=== PATIENT | female | born 1975 | race Caucasian/White ===

== ENCOUNTER 2024-10-16 04:08 | Emergency (ER) | payer OTHER, MEDICARE, SELFPAY ==
[2024-10-16] VITALS (7 sets, daily range): BP systolic 115–138; BP diastolic 56–62; PULSE 77–116; RESP 13–18; TEMP 36.7–37.1; O2SAT 96–98; BMI 27.5
--- NOTE | 2024-10-16 04:19 | ED.VIS.GI ---
HPI HPI - GI History of Present Illness Chief Complaint: Abd Pain Narrative Narrative: 49-year-old female past medical history of anxiety, she has had prior cholecystectomy remotely is visiting from [place]. She states over the last 3 weeks she has had lower abdominal pain which has become more constant over the last 3 days. She was laying in her hotel room and the pain became very intense. She denies any fevers or chills, no nausea or vomiting, no problems with bowel movements, no diarrhea. Last normal bowel movement was yesterday. No blood in her bowel movements. She denies any dysuria or hematuria. Sometimes the pain is dull and achy and other times sharp and stabbing. She was able to drive herself to the emergency department. She does state that she thought maybe a few days ago that she was having appendicitis. [facility] Medical History (Updated 10/16/24 @ 07:[address] Abhay Hernandez DO) Tachyarrhythmia Anxiety Home Medications ?Medication ?Instructions ?Recorded ?Last Taken ?Type amitriptyline 50 mg tablet 50 mg PO DAILY 10/16/24 Unknown History cyclobenzaprine 10 mg tablet 10 mg PO QHS 10/16/24 Unknown History gabapentin 300 mg capsule 300 mg PO DAILY 10/16/24 Unknown History gabapentin 300 mg capsule 600 mg PO QHS 10/16/24 Unknown History hydrocodone-acetaminophen 5-325mg 1 - 2 tab PO BID 10/16/24 Unknown History 5mg-325mg hydrocodone-acetaminophen 5-325mg 1 tab PO Q6H PRN PRN Pain 3 days 10/16/24 Unknown Rx 5mg-325mg #10 TABLETS levofloxacin 750 mg tablet 750 mg PO DAILY #10 tabs 10/16/24 Unknown Rx Allergy/AdvReac Type Severity Reaction Status Date / Time adhesive AdvReac Mild Rash Verified 10/16/24 04:10 azithromycin AdvReac Mild eye Verified 10/16/24 04:10 swelling Sulfa (Sulfonamide AdvReac Mild Rash Verified 10/16/24 04:10 Antibiotics) Family History (Updated 10/16/24 @ 07:[address] Abhay Hernandez DO) Other CAD (coronary artery disease) Surgical History (Updated 10/16/24 @ 07:[address] Abhay Hernandez DO) S/P ablation operation for arrhythmia H/O Spinal surgery Hx of cholecystectomy Social History Smoking Status: Current some day smoker tobacco type: cigarettes ROS ROS ED ROS Narrative Constitutional: No fever, no chills. HEENT: No sore throat. No neck pain. Cardiovascular: No chest pain. No palpitations. No pedal edema. Respiratory: No cough, no shortness of breath. Abdominal: Positive for lower abdominal pain. No nausea. No vomiting. No diarrhea. Genitourinary: No dysuria. No hematuria. Musculoskeletal: No myalgias. No arthralgias. Neurologic: No headaches. No dizziness. No lightheadedness. Skin: No rash. No change in color. Psychiatric: No depression. No anxiety. EXAM Physical Exam Narrative Exam Narrative: Afebrile. Vital signs noted. Nontoxic-appearing. Cardiovascular examination reveals mild tachycardia. Lungs are clear to auscultation bilaterally. Abdomen is soft with diffuse tenderness to palpation, especially in the lower quadrants of the abdomen. Occasional voluntary guarding. No rebound. Positive bowel sounds. Positive CVA tenderness to percussion right greater than left. Neurological examination is nonfocal and nonlateralizing. Const Vital Signs: 10/16/24 04:14 10/16/24 05:41 10/16/24 05:44 Temperature 98.0 F 98.2 F Temperature Source Temporal Oral Pulse Rate 116 H 99 Respiratory Rate 18 13 Blood Pressure 138/62 H 115/57 L Blood Pressure Mean 87 76 Pulse Ox 98 98 97 Oxygen Delivery Method Room Air Room Air Room Air 10/16/24 06:20 10/16/24 06:46 10/16/24 07:15 Temperature 98.7 F 98.4 F Temperature Source Temporal Oral Pulse Rate 106 H 96 101 H Respiratory Rate 16 16 17 Blood Pressure 122/56 H 123/62 H 124/58 H Blood Pressure Mean 78 82 80 Pulse Ox 98 98 96 Oxygen Delivery Method Room Air Room Air Room Air 10/16/24 07:45 Temperature 98.2 F Temperature Source Pulse Rate 77 Respiratory Rate 18 Blood Pressure 124/58 H Blood Pressure Mean 80 Pulse Ox 98 Oxygen Delivery Method MDM MDM MDM Narrative Medical decision making narrative: Differential diagnosis includes but not limited to acute appendicitis versus diverticulitis versus cystitis versus pyelonephritis versus ureterolithiasis. Comprehensive workup was pursued. Patient did drive herself here so narcotic analgesia was deferred. However, she was given Toradol 30 mg intravenously. I reviewed her laboratory work and she does have a leukocytosis with a white count of 18.2 with hemoglobin normal at 13.2, hematocrit 38.6, platelet count normal at 437. Sodium slightly low 133 which I think is nonspecific, potassium normal at 4.0, BUN low at 6 with creatinine 0.80. Glucose elevated at 147 but she has normal anion gap of 6. LFTs show an alk phos elevated at 119 which I think is nonspecific. Lipase is low at 12 so I doubt pancreatitis. Urinalysis obtained and she has positive for nitrites and microanalysis reveals greater than 100 WBCs with 10-25 RBCs and 3+ bacteria. She was given oral Levaquin initially. I reviewed the radiology report of the CT of the abdomen and pelvis and she has a thickened bladder wall consistent with cystitis, however she does have inflammation of the bilateral ureters and kidneys as there is enhancement noted. I do think that she probably has more of a pyelonephritis. Given her elevated white count and tachycardia initially of 116, currently 99 bpm I obtained a lactic acid. Her urine was sent for culture as well. Lactic acid is normal. Given the patient's elevated white count and back pain as well as suprapubic pain, I discussed patient with the hospitalist, Dr. Hernandez. Initially, the patient was agreeable to observation for IV antibiotics. However, in discussion with the hospitalist she would not like to be discharged. Levaquin will be continued for 10 days and she will be given a short course of narcotic pain medication. She should follow-up with her primary care provider out of state as she states she was returning to [place] tomorrow. Return instructions to the emergency department were reviewed. Disposition is discharged home in stable condition. History & Record Review Discussion w/independent historian: Patient Lab Data Attestation: I reviewed the patient's lab results. Labs: Laboratory Results - last 24 hr 10/16/24 10/16/24 10/16/24 04:15 04:25 05:50 WBC 18.2 H RBC 4.32 Hgb 13.2 Hct 38.6 MCV 89.4 MCH 30.6 MCHC 34.2 RDW Std Deviation 45.1 H RDW Coeff of [place] 13.6 Plt Count 437 MPV 8.7 Immature Gran % (Auto) 0.400 Neut % (Auto) 80.9 H Lymph % (Auto) 11.4 L [place] % (Auto) 6.8 Eos % (Auto) 0.2 Baso % (Auto) 0.3 Absolute Neuts (auto) 14.7 H Absolute Lymphs (auto) 2.08 Nucleated RBC % 0 Sodium 133 L Potassium 4.0 Chloride 101 Carbon Dioxide 26.0 Anion Gap 6 BUN 6 L Creatinine 0.80 Estim Creat Clear Calc 72.34 Est GFR (MDRD) Af Amer 96 Est GFR (MDRD) Non-Af 80 BUN/Creatinine Ratio 7.5 L Glucose 147 H Lactic Acid 0.8 Calcium 9.2 Total Bilirubin 0.50 AST 26 ALT 40 Alkaline Phosphatase 119 H Total Protein 8.0 Albumin 3.6 Globulin 4.4 H Albumin/Globulin Ratio 0.8 L Lipase 12 L Urine Color Yellow Urine Clarity Turbid Urine pH 6.0 Ur Specific [place] 1.015 Urine Protein 500 H Urine Glucose (UA) Normal Urine Ketones Negative Urine Occult Blood 250 H Urine Nitrite Positive H Urine Bilirubin Negative Urine Urobilinogen Normal Ur Leukocyte Esterase 500 H Urine RBC 10-25 SEEN Urine WBC >100 SEEN Ur Squamous Epith Cells 0 SEEN Urine Bacteria 3+ Urine Mucus 0 SEEN Radiography Diagnostic Testing: Clinical Impression(s) from Imaging Studies Abdomen/Pelvis CT 10/16/24 04:48 IMPRESSION: 1. Enhancement of the bilateral renal pelvises and ureters. Correlate with infection/inflammation. No obstructive calculi. 2. Nonobstructive calculus in the left kidney. 3. Mild bladder wall thickening. Correlate with cystitis 4. Hepatic steatosis and hepatomegaly 5. Significant amount of stool in the colon. Correlate with constipation. 6. Sigmoid diverticulosis with no evidence of diverticulitis. One or more dose reduction techniques were used (e.g., Automated exposure control, adjustment of the mA and/or kV according to patient size, use of iterative reconstruction technique). Reading Location: [facility] Discharge Plan Triage Chief Complaint: Abd Pain ED Provider: Isaías Jain Dx/Rx/DC Orders Clinical Impression: Pyelonephritis, Abdominal pain, Hyponatremia Instructions: ED Hyponatremia, ED Pyelonephritis, Female (Adult), ED Cystitis Female Adult Prescriptions: New levofloxacin 750 mg tablet 750 mg PO DAILY Qty: 10 0RF hydrocodone-acetaminophen 5-325 mg tablet 1 tab PO Q6H PRN PRN (Reason: Pain) 3 Days Qty: 10 0RF No Action gabapentin 300 mg capsule 300 mg PO DAILY gabapentin 300 mg capsule 600 mg PO QHS amitriptyline 50 mg tablet 50 mg PO DAILY cyclobenzaprine 10 mg tablet 10 mg PO QHS hydrocodone-acetaminophen 5-325 mg tablet 1 - 2 tab PO BID Primary Care Provider: LISA GASTELUM Referrals: [facility] Doctor,Out of [Non-Staff] - Activity Restrictions/Additional Instructions: Take the antibiotic as directed for the next 10 days. Follow-up with your primary care provider in [place]. Return to the emergency department/seek medical attention if you have sustained high fever, increased pain, inability to take antibiotic, new or worsening symptoms. Do not take narcotic pain medication when driving or operating heavy machinery. Print Language: Chinese Disposition Disposition: Home, Self Care Discharge Date/Time: 10/16/24 07:51
[2024-10-16] MEDS: 0.9% Normal Saline (1000mL) 1,000 ML 999 ML IV (04:22)
[2024-10-16 04:26] LABS: Absolute Lymphocyte Count 2.08 X10^3/uL (0.83-4.51); Absolute Neutrophil Count 14.7 X10^3/uL (2.0-7.7); Basophil# 0.05 X10^3/uL; Basophil% 0.3 % (0-1); Eosinophil# 0.04 X10^3/uL; Eosinophils% 0.2 % (0-5); Hematocrit 38.6 % (37-47); Hemoglobin 13.2 g/dL (12.0-15.0); Lymphocyte # 2.08 X10^3/ul (0.83-4.51); Lymphocyte % 11.4 % (19-41); Mean Corp Hgb Conc 34.2 g/dL (32-36); Mean Corpuscular Hgb 30.6 pg (27.0-32.0); Mean Corpuscular Volume 89.4 fL (81-99); Mean Platelet Vol. 8.7 fl (6.2-12.0); Monocyte# 1.23 X10^3/uL; Monocyte% 6.8 % (0-10); NRBC Flagged by Analyzer 0 % (0-5); Neutrophil # 14.69 X10^3/uL (2.7-7.7); Neutrophil % 80.9 % (47-70); Platelet Count 437 K/mm3 (150-450); RBC Distribution Width CV 13.6 % (11.6-14.6); RBC Distribution Width SD 45.1 fl (35.1-43.9); Red Blood Count 4.32 M/mm3 (4.2-5.4); White Blood Count 18.2 K/mm3 (4.4-11.0)
[2024-10-16 04:35] LABS: Mucous, Urine 0 SEEN /hpf (<or=2+); Squamous Epithelial Cells - UA 0 SEEN /hpf (5-10)
[2024-10-16 04:36] LABS: Color, Urine Yellow (Yellow); Glucose, Dipstick Normal (Normal); Ketone-Dipstick Negative (Negative); Leukocyte Esterase-Dipstick 500 /ul (Negative); Nitrite-Dipstick Positive (Negative); Occult Blood-Urine 250 /ul (Negative); Protein-Dipstick 500 mg/dl (Negative); Specific Gravity, Urine 1.015 (1.002-1.030); Urine Bilirubin Dipstick Negative (Negative); Urine Clarity Turbid (Clear); Urine Urobilinogen Normal (Normal)
[2024-10-16 04:42] LABS: ALB/GLOB Ratio 0.8 RATIO (0.9-2.4); AST(SGOT) 26 U/L (15-37); Alanine Aminotransfer ALT/SGPT 40 U/L (13-56); Albumin, Serum 3.6 g/dL (3.2-5.0); Alkaline Phosphatase 119 U/L (45-117); Anion Gap 6 (5-15); BUN 6 mg/dL (7-18); BUN/Creat Ratio 7.5 RATIO (10-20); Calcium,Total 9.2 mg/dL (8.5-10.1); Chloride 101 mmol/L (98-107); EST Glomerular Filtration Rate 80 mL/min (>60); Est Glom Filt Rate - Afr Amer 96 mL/min (>60); Estimated Creatinine Clearance 72.34 ml/min; Globulin 4.4 g/dL (2.2-4.2); Glucose 147 mg/dL (74-106); Lipase 12 U/L (73-393); Sodium Level 133 mmol/L (136-145)
--- NOTE | 2024-10-16 04:48 | CT_ITS ---
PROCEDURE: ABDOMEN/PELVIS W IV CONT ONLY REASON FOR EXAM: Pain TECHNIQUE: Abdomen and pelvis CT with intravenous contrast. COMPARISON: None. FINDINGS: Lung bases: Clear Liver: Fatty infiltration. Enlarged. Gallbladder: Surgically absent. Spleen: Unremarkable. Pancreas: Unremarkable. Adrenals: Left adrenal gland is mildly thickened Kidneys: Nonobstructive calculus in the left kidney. There is enhancement of the bilateral ureters with no obstructive calculi. Bladder: Mild bladder wall thickening Reproductive Organs: Uterus is present and unremarkable Bowel: Significant stool noted throughout the colon. Multiple diverticula in the sigmoid colon Appendix: Unremarkable Lymph nodes: No suspicious lymph node enlargement. Vasculature: Major vascular structures are unremarkable. Peritoneum / Retroperitoneum: No ascites. No free air. Bones: Unremarkable. CT/Abdomen/Pelvis W IV Cont ONLY IMPRESSION: 1. Enhancement of the bilateral renal pelvises and ureters. Correlate with in fection/inflammation. No obstructive calculi. 2. Nonobstructive calculus in the left kidney. 3. Mild bladder wall thickening. Correlate with cystitis 4. Hepatic steatosis and hepatomegaly 5. Significant amount of stool in the colon. Correlate with constipation. 6. Sigmoid diverticulosis with no evidence of diverticulitis. One or more dose reduction techniques were used (e.g., Automated exposure contr ol, adjustment of the mA and/or kV according to patient size, use of iterative reconstruction technique). Reading Location: [facility]
[2024-10-16 05:06] LABS: Red Blood Cells-Urine 10-25 SEEN /hpf (0-5); White Blood Cells >100 SEEN /hpf (0-5)
[2024-10-16 05:07] LABS: Bacteria 3+ /hpf (None Seen)
[2024-10-16] MEDS: Ketorolac 30 MG/ML Syringe IV (05:14)
[2024-10-16] MEDS: levoFLOXacin 750 MG Tablet PO (05:15)
[2024-10-16 06:41] LABS: Lactic Acid 0.8 mmol/L (0.4-1.9)
--- NOTE | 2024-10-16 07:49 | PCM.CONS.GEN ---
Assessment & Plan Assessment/Plan (1) Pyelonephritis: PLAN: Over the patient the opportunity to stay in the hospital but given her circumstances she would much prefer to be discharged so that she can help her which people get around. Plan is also to return back to [place] on the . I feel that is very reasonable as she is currently very hemodynamically stable. Patient will need to be on antibiotics for least 10 days. Patient may take acetaminophen and ibuprofen as needed for pain when she is not driving and perhaps a narcotic at other times help her with her pain. Advised patient that the pain will improve with time but may take several days to get to more tolerable level. PLAN: Plan So went back and spoke with Dr. Jain and made him aware of the patient's request to be discharged home. He will facilitate the medications and discharge. HPI Consult Data Date of Consult: 10/16/24 HPI Narrative Reason for Consultation: Consult requested by Dr. Jain for pyelonephritis. HPI Narrative: KINGS GUIDO, is a 49 F who presents with a 3-week history of dysuria. Over the past few days, she has been experiencing bilateral back pain. 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 She underwent a workup that showed a UTI as well as pyelonephritis on CAT scan. Patient received a dose of levofloxacin in the emergency room. Given her pain and discomfort, the hospital service was contacted to see if the patient would benefit from admission. Patient never had history of pyelonephritis before. Patient had not sought evaluation for her dysuria prior to this. [facility] Medical History (Updated 10/16/24 @ 07:[address] Abhay Hernandez, DO) Tachyarrhythmia Anxiety Home Medications ?Medication ?Instructions ?Recorded ?Last Taken ?Type amitriptyline 50 mg tablet 50 mg PO DAILY 10/16/24 Unknown History cyclobenzaprine 10 mg tablet 10 mg PO QHS 10/16/24 Unknown History gabapentin 300 mg capsule 300 mg PO DAILY 10/16/24 Unknown History gabapentin 300 mg capsule 600 mg PO QHS 10/16/24 Unknown History hydrocodone-acetaminophen 5-325mg 1 - 2 tab PO BID 10/16/24 Unknown History 5mg-325mg hydrocodone-acetaminophen 5-325mg 1 tab PO Q6H PRN PRN Pain 3 days 10/16/24 Unknown Rx 5mg-325mg #10 TABLETS levofloxacin 750 mg tablet 750 mg PO DAILY #10 tabs 10/16/24 Unknown Rx Allergy/AdvReac Type Severity Reaction Status Date / Time adhesive AdvReac Mild Rash Verified 10/16/24 04:10 azithromycin AdvReac Mild eye Verified 10/16/24 04:10 swelling Sulfa (Sulfonamide AdvReac Mild Rash Verified 10/16/24 04:10 Antibiotics) Family History (Updated 10/16/24 @ 07:[address] Abhay Hernandez DO) Other CAD (coronary artery disease) Surgical History (Updated 10/16/24 @ 07:[address] Abhay Hernandez DO) S/P ablation operation for arrhythmia H/O Spinal surgery Hx of cholecystectomy Social History Smoking Status: Current some day smoker tobacco type: cigarettes Physical Exam Const alert and no apparent distress HEENT normocephalic and head/scalp atraumatic GI GI Narrative: No reproducible CVA tenderness Lab / Micro Data 10/16/24 04:15 10/16/24 04:15 Labs: Laboratory Results - last 24 hr 10/16/24 04:15: WBC 18.2 H, RBC 4.32, Hgb 13.2, Hct 38.6, MCV 89.4, MCH 30.6, MCHC 34.2, RDW Std Deviation 45.1 H, RDW Coeff of [place] 13.6, Plt Count 437, MPV 8.7, Immature Gran % (Auto) 0.400, Neut % (Auto) 80.9 H, Lymph % (Auto) 11.4 L, [place] % (Auto) 6.8, Eos % (Auto) 0.2, Baso % (Auto) 0.3, Absolute Neuts (auto) 14.7 H, Absolute Lymphs (auto) 2.08, Nucleated RBC % 0, Sodium 133 L, Potassium 4.0, Chloride 101, Carbon Dioxide 26.0, Anion Gap 6, BUN 6 L, Creatinine 0.80, Estim Creat Clear Calc 72.34, Est GFR (MDRD) Af Amer 96, Est GFR (MDRD) Non-Af 80, BUN/Creatinine Ratio 7.5 L, Glucose 147 H, Calcium 9.2, Total Bilirubin 0.50, AST 26, ALT 40, Alkaline Phosphatase 119 H, Total Protein 8.0, Albumin 3.6, Globulin 4.4 H, Albumin/Globulin Ratio 0.8 L, Lipase 12 L 10/16/24 04:25: Urine Color Yellow, Urine Clarity Turbid, Urine pH 6.0, Ur Specific [place] 1.015, Urine Protein 500 H, Urine Glucose (UA) Normal, Urine Ketones Negative, Urine Occult Blood 250 H, Urine Nitrite Positive H, Urine Bilirubin Negative, Urine Urobilinogen Normal, Ur Leukocyte Esterase 500 H, Urine RBC 10-25 SEEN, Urine WBC >100 SEEN, Ur Squamous Epith Cells 0 SEEN, Urine Bacteria 3+, Urine Mucus 0 SEEN 10/16/24 05:50: Lactic Acid 0.8 Imaging Radiology Impression Abdomen/Pelvis CT 10/16/24 04:48 IMPRESSION: 1. Enhancement of the bilateral renal pelvises and ureters. Correlate with infection/inflammation. No obstructive calculi. 2. Nonobstructive calculus in the left kidney. 3. Mild bladder wall thickening. Correlate with cystitis 4. Hepatic steatosis and hepatomegaly 5. Significant amount of stool in the colon. Correlate with constipation. 6. Sigmoid diverticulosis with no evidence of diverticulitis. One or more dose reduction techniques were used (e.g., Automated exposure control, adjustment of the mA and/or kV according to patient size, use of iterative reconstruction technique). Reading Location: [facility] Charges/Coding Visit Charges Office Visits / Consults: [id number] OV L3 New 30min
== END 2024-10-16 07:51 | disposition home or self-care (01) ==
PROVIDERS: Emergency Provider Emergency Medicine; Visit Provider Emergency Medicine
DX: R10.30 Lower abdominal pain, unspecified (principal); N12 Tubulo-interstitial nephritis, not specified as acute or chronic; F41.9 Anxiety disorder, unspecified; E87.1 Hypo-osmolality and hyponatremia; Z90.49 Acquired absence of other specified parts of digestive tract; Z79.899 Other long term (current) drug therapy; F17.210 Nicotine dependence, cigarettes, uncomplicated
CPT/HCPCS: 36415; 74177; 80053; 81001; 83605; 83690; 85025; 87040; 87086; 87088; 87186; 96361; 96374; 99283; Q9967; A4216